=== PATIENT | female | born 1985 | race Caucasian/White ===

== ENCOUNTER 2020-10-20 05:27 | Inpatient (IN) | payer BC ==
[2020-10-20] MEDS ORDERED: Sodium Chloride 0.9% 2.5 ML Syringe FLUSH PRN (05:53)
[2020-10-20] MEDS ORDERED: Carboprost Tromethamine 250 MCG/1 ML Amp IM PRN (05:53)
[2020-10-20] MEDS ORDERED: Methylergonovine 0.2 MG/1 ML Amp IM PRN ×2 (05:53→09:16)
[2020-10-20] MEDS ORDERED: Sodium Chloride 0.9% 10 ML Syringe FLUSH PRN (05:53)
[2020-10-20] MEDS ORDERED: Water For Irrigation,Sterile 1,000 ML Container IRR PRN (05:53)
[2020-10-20] MEDS ORDERED: Tranexamic Acid 1,000 MG in Sodium Chloride 0.9% 100 ML IV PRN ×2 (05:53→09:16)
[2020-10-20] MEDS ORDERED: ceFAZolin 2 GM in Premix Bag 1 BAG IV ONE (05:53)
[2020-10-20] MEDS ORDERED: Misoprostol 200 MCG Tab PO PRN (05:53)
[2020-10-20] MEDS ORDERED: Lidocaine 1% 50 ML MDV INJECT PRN (05:53)
[2020-10-20] MEDS ORDERED: Ondansetron 4 MG/2 ML SDV IVPUSH PRN ×2 (05:53→09:16)
[2020-10-20] MEDS ORDERED: Citric Acid/Sodium Citrate Solution 30 ML Cup PO ONE (05:53)
[2020-10-20] MEDS ORDERED: Sodium Chloride 0.9% 10 ML SDV IV PRN (05:53)
[2020-10-20] MEDS ORDERED: Lactated Ringers 1,000 ML IV SCH ×2 (06:00→09:30)
[2020-10-20] MEDS ORDERED: Oxytocin/0.9 % Sodium Chloride 30 UNIT/500 ML BAG IV SCH ×2 (06:00)
[2020-10-20] MEDS: Lactated Ringers 1,000 ML IV SCH ×2 (06:29→07:10)
[2020-10-20] MEDS ORDERED: Ketorolac 30 MG/ML SDV ONE (06:45)
[2020-10-20] MEDS ORDERED: Phenylephrine 1% 10 MG/ML SDV ONE (06:45)
[2020-10-20] MEDS ORDERED: Oxytocin 10 Units/1 ML SDV ONE (06:45)
[2020-10-20] MEDS ORDERED: Ondansetron 4 MG/2 ML SDV ONE ×2 (06:45→08:36)
[2020-10-20] MEDS ORDERED: ceFAZolin 1 GM Vial ONE (06:48)
[2020-10-20] MEDS ORDERED: Sodium Chloride 0.9% 20 ML ONE (06:48)
[2020-10-20] MEDS ORDERED: Morphine PF 10 MG/10 ML SDV ONE (06:53)
[2020-10-20] MEDS ORDERED: Nalbuphine 10 MG/1 ML Vial IVPUSH PRN (06:57)
--- NOTE | 2020-10-20 07:24 | PCM.PREANE ---
Preanesthetic Assessment - Anesthesia/Transfusion/Family Hx Anesthesia History: Prior Anesthesia Without Reaction Family History of Anesthesia Reaction: No Transfusion History: No Prior Transfusion(s) Intubation History: Unknown - Physical Assessment NPO Status Date: 10/20/20 NPO Status Time: 00:05 Height: 1.65 m Weight: 102.965 kg ASA Class: 2 - Lab Values: Laboratory Last Values WBC 9.32 K/uL (4.0-11.0) 10/19/20 08:20 RBC 4.74 M/uL (4.30-5.90) 10/19/20 08:20 Hgb 14.1 g/dL (12.0-16.0) 10/19/20 08:20 Hct 41.6 % (36.0-46.0) 10/19/20 08:20 MCV 87.8 fL (80.0-98.0) 10/19/20 08:20 MCH 29.7 pg (27.0-32.0) 10/19/20 08:20 MCHC 33.9 g/dL (31.0-37.0) 10/19/20 08:20 RDW Std Deviation 46.5 fl (28.0-62.0) 10/19/20 08:20 RDW Coeff of Eva 15 % (11.0-15.0) 10/19/20 08:20 Plt Count 194 K/uL (150-400) 10/19/20 08:20 MPV 10.40 fL (7.40-12.00) 10/19/20 08:20 Nucleated RBC % 0.0 /100WBC 10/19/20 08:20 Nucleated RBCs # 0 K/uL 10/19/20 08:20 Blood Type A POSITIVE 10/19/20 08:20 Antibody Screen NEGATIVE 10/19/20 08:20 - Allergies Allergies/Adverse Reactions: Allergies Allergy/AdvReac Type Severity Reaction Status Date / Time No Known Allergies Allergy Verified 10/17/20 08:59 - Acknowledgements Anesthesia Type Planned: Spinal Pt an Appropriate Candidate for the Planned Anesthesia: Yes Alternatives and Risks of Anesthesia Discussed w Pt/Guardian: Yes Pt/Guardian Understands and Agrees with Anesthesia Plan: Yes PreAnesthesia Questionnaire HEENT History: Reports: Other (See Below) Other HEENT History: wears glasses/contacts Cardiovascular History: Reports: None Respiratory History: Reports: None Gastrointestinal History: Reports: GERD Other Gastrointestinal History: heartburn with Genitourinary History: Reports: None KNOCKER OFF History: Reports: , Other (See Below) Other OB/BYN History: LEEP, Colpo X3 Neurological History: Reports: None Psychiatric History: Reports: Anxiety Endocrine/Metabolic History: Reports: None Hematologic History: Reports: None Immunologic History: Reports: None Oncologic (Cancer) History: Reports: None Dermatologic History: Reports: None - Infectious Disease History Infectious Disease History: Reports: Human Papilloma Virus (HPV) - Past Surgical History Head Surgeries/Procedures: Reports: None HEENT Surgical History: Reports: Oral Surgery Cardiovascular Surgical History: Reports: None Respiratory Surgical History: Reports: None GI Surgical History: Reports: None Female Surgical History: Reports: Section, LEEP Endocrine Surgical History: Reports: None Neurological Surgical History: Reports: None Musculoskeletal Surgical History: Reports: None Oncologic Surgical History: Reports: None Dermatological Surgical History: Reports: None - SUBSTANCE USE Tobacco Use Status *Q: Never Tobacco User Second Hand Smoke Exposure: No Recreational Drug Use History: No - HOME MEDS Home Medications: Home Meds Vits #93/Iron Fum/FA [ Formula Tablet] 1 tab PO DAILY 09/22/18 [History] Escitalopram Oxalate 10 mg PO BEDTIME 10/17/20 [History] Famotidine [Pepcid AC] 1 tab PO DAILY 10/17/20 [History] - CURRENT (IN HOUSE) MEDS Current Meds: Current Medications Carboprost Tromethamine (Carboprost Tromethamine 250 Mcg/1 Ml Amp) 250 mcg IM ASDIRECTED PRN PRN Reason: Post Hemorrhage Lactated Ringer's (Ringers, Lactated) 1,000 mls @ 150 mls/hr IV ASDIRECTED KELLY Oxytocin/Sodium Chloride (Oxytocin 30 Unit/500 Ml-Ns) 30 unit in 500 mls @ 999 mls/hr IV TITRATE KELLY Tranexamic Acid 1,000 mg/ (Sodium Chloride) 110 mls @ 660 mls/hr IV ONETIME PRN PRN Reason: Bleeding Lactated Ringer's (Ringers, Lactated) 1,000 mls @ 500 mls/hr IV BOLUS KELLY Last Admin: 10/20/20 06:29 Dose: 500 mls/hr Documented by: Oxytocin/Sodium Chloride (Oxytocin 30 Unit/500 Ml-Ns) 30 unit in 500 mls @ 250 mls/hr IV TITRATE KELLY Lidocaine HCl (Lidocaine 1% 50 Ml Mdv) 50 ml INJECT ONETIME PRN PRN Reason: Laceration repair Methylergonovine Maleate (Methylergonovine 0.2 Mg/1 Ml Amp) 0.2 mg IM ASDIRECTED PRN PRN Reason: Post Hemorrhage Misoprostol (Misoprostol 200 Mcg Tab) 200 mcg PO ONETIME PRN PRN Reason: Post Hemorrhage Nalbuphine HCl (Nalbuphine 10 Mg/1 Ml Vial) 5 mg IVPUSH Q3H PRN PRN Reason: Pruritis Stop: 10/21/20 06:57 Ondansetron HCl (Ondansetron 4 Mg/2 Ml Sdv) 4 mg IVPUSH Q4H PRN PRN Reason: Nausea/Vomiting Sodium Chloride (Sodium Chloride 0.9% 10 Ml Syringe) 10 ml FLUSH ASDIRECTED PRN PRN Reason: Keep Vein Open Sodium Chloride (Sodium Chloride 0.9% 2.5 Ml Syringe) 2.5 ml FLUSH ASDIRECTED PRN PRN Reason: Keep Vein Open Sodium Chloride (Sodium Chloride 0.9% 10 Ml Sdv) 10 ml IV ASDIRECTED PRN PRN Reason: IV Use Sterile Water (Water For Irrigation,Sterile 1,000 Ml Container) 1,000 ml IRR ASDIRECTED PRN PRN Reason: delivery Discontinued Medications Cefazolin Sodium (Cefazolin 1 Gm Vial) Confirm Administered Dose 2 gm .ROUTE .STK-MED ONE Stop: 10/20/20 06:49 Citric Acid/Sodium Citrate (Citric Acid/Sodium Citrate Solution 30 Ml Cup) 30 ml PO ONETIME ONE Stop: 10/20/20 05:54 Cefazolin Sodium/Dextrose 2 gm (/ Premix) 50 mls @ 100 mls/hr IV ONETIME ONE Stop: 10/20/20 06:22 Sodium Chloride (Normal Saline) Confirm Administered Dose 20 mls @ as directed .ROUTE .STK-MED ONE Stop: 10/20/20 06:49 Ketorolac Tromethamine (Ketorolac 30 Mg/Ml Sdv) Confirm Administered Dose 30 mg .ROUTE .STK-MED ONE Stop: 10/20/20 06:46 Morphine Sulfate (Morphine Pf 10 Mg/10 Ml Sdv) Confirm Administered Dose 10 mg .ROUTE .STK-MED ONE Stop: 10/20/20 06:54 Ondansetron HCl (Ondansetron 4 Mg/2 Ml Sdv) Confirm Administered Dose 4 mg .ROUTE .STK-MED ONE Stop: 10/20/20 06:46 Oxytocin (Oxytocin 10 Units/1 Ml Sdv) Confirm Administered Dose 20 unit .ROUTE .STK-MED ONE Stop: 10/20/20 06:46 Phenylephrine HCl (Phenylephrine 1% 10 Mg/Ml Sdv) Confirm Administered Dose 10 mg .ROUTE .STK-MED ONE Stop: 10/20/20 06:46
[2020-10-20] MEDS ORDERED: Propofol 200 MG/20 ML SDV ONE (08:17)
[2020-10-20] MEDS ORDERED: Lanolin 100% Cream 7 GM Tube TOP PRN (09:16)
[2020-10-20] MEDS ORDERED: diphenhydrAMINE 50 MG/ML SDV IVPUSH PRN (09:16)
[2020-10-20] MEDS ORDERED: Oxytocin 10 Units/1 ML SDV IM PRN (09:16)
[2020-10-20] MEDS ORDERED: Misoprostol 200 MCG Tab RECTAL PRN (09:16)
[2020-10-20] MEDS ORDERED: Acetaminophen/oxyCODONE 325-5 MG Tab PO PRN ×2 (09:16)
[2020-10-20] MEDS ORDERED: Bisacodyl 10 MG Supp RECTAL PRN (09:16)
--- NOTE | 2020-10-20 09:26 | PCM.OPNOTE ---
- General Post-Op/Procedure Note Date of Surgery/Procedure: 10/20/20 Operative Procedure(s): Repeat LTCS Findings: Viable female APGARs 8, 9 weight 4350 gm. Delivery intact placenta with 3V cord. Pre Op Diagnosis: 39 week IUP. Previous csection, desires repeat Post-Op Diagnosis: Same Anesthesia Technique: Spinal Primary Surgeon: Carolyn Hernandes Fluid Replacement, Intraop: 1,000 EBL in mLs: 600 Complications: none known Condition: Stable Free Text/Narrative:: Dictation [id number]
--- NOTE | 2020-10-20 09:46 | PCM.POSTAN ---
POST ANESTHESIA ASSESSMENT - MENTAL STATUS Mental Status: Alert - RESPIRATORY Respiratory Status: Respiratory Rate WNL - CARDIOVASCULAR CV Status: Pulse Rate WNL - GASTROINTESTINAL GI Status: No Symptoms - POST OP HYDRATION Hydration Status: Adequate & Stable
--- NOTE | 2020-10-20 09:48 | PCM48HPAN ---
Post Anesthesia Note - EVALUATION WITHIN 48HRS OF ANESTHETIC Vital Signs in Normal Range: Yes Patient Participated in Evaluation: Yes Respiratory Function Stable: Yes Airway Patent: Yes Cardiovascular Function Stable: Yes Hydration Status Stable: Yes Pain Control Satisfactory: Yes Nausea and Vomiting Control Satisfactory: Yes Mental Status Recovered: Yes
[2020-10-20] MEDS: Simethicone 80 MG Tab.Chew PO SCH ×2 (13:43→18:53)
[2020-10-20] MEDS: Ketorolac 30 MG/ML SDV IVPUSH SCH ×3 (13:43→21:18)
--- NOTE | 2020-10-20 13:57 | OR ---
SURGEON: Carolyn Hernandes M.D. DATE OF PROCEDURE: 10/20/2020 PREOPERATIVE DIAGNOSES: 1. A 39-week intrauterine . 2. Previous section, desires repeat. POSTOPERATIVE DIAGNOSES: 1. A 39-week intrauterine . 2. Previous section, desires repeat. PROCEDURE: Repeat low transverse section. ANESTHESIA: Spinal. ESTIMATED BLOOD LOSS: 600 mL. FLUIDS: 1000 mL of crystalloid in OR. COMPLICATIONS: None. FINDINGS: Viable female. scores 8 at one minute, 9 at five minutes. Weight of 4350 g. Delivery of an intact placenta with 3-vessel cord. DISPOSITION: to nursery. Mom in PACU, stable. PROCEDURE DETAILS: Kimberly is a 35-year-old G2, P1 at 39 weeks gestational age who presents today for scheduled repeat delivery. Risks of procedure have been discussed. Proper consent obtained. The patient was taken to the operating room, where she underwent spinal anesthetic, and was then placed in dorsal supine position with leftward tilt. SCDs to lower extremities. Sheikh to gravity. She was prepped and draped in the usual sterile fashion. Received Ancef prophylactically. Time-out was performed. After being prepped and draped in the usual sterile fashion, anesthesia was tested and found to be adequate. A Pfannenstiel scar was now excised. Subcutaneous tissue was incised down to the level of rectus fascia, which was incised in midline, lateralized on either side sharply and bluntly. Superior aspect of fascia was tented upwards, dissected sharply and bluntly away from underlying muscle. In a similar aspect, performed with the inferior aspect of the fascia. Rectus muscles were now in midline. Peritoneum was entered. Rectus muscles and peritoneum were now lateralized bluntly. A self- retaining retractor was now gently placed. Uterine position and position were now palpated. The uterovesical reflection was visualized. Bladder flap was created sharply and bluntly. Bladder was mobilized away from lower uterine segment. There was a peritoneal window noted on the right side of the lower uterine segment along this region, was able to bluntly perform hysterotomy. Amniotomy was performed, clear fluid was returned. The head was flexed and the head was delivered with fundal pressure being applied, followed by shoulders, and remainder of body without difficulty. The 's oropharynx and nares were bulb suctioned. After a delay, cord was clamped x2. Cord arterial, cord venous, and cord blood sampling obtained. The was handed off to attending nursery staff. Cord arterial, cord venous, and cord blood sampling were obtained. The placenta was now delivered. Uterine cavity was cleared of all clot and debris. Hysterotomy repaired using 0 Vicryl in continuous running locked fashion. There was uterine vessel bleeding along the left aspect. This was replicated with 2 [id number] sutures. Hemostasis thereafter evident. The incision was now reimbricated with 0 Vicryl. The posterior aspect of the uterus was inspected. No defects or hematomas found be forming. Region was well irrigated, suction dried. Tubes and ovaries appeared normal. Uterus was returned to the abdominal cavity. Colonic gutters were cleared of all clot and debris, well irrigated, and suction dried. Any areas of serosal oozing were now cauterized. Hemostasis appeared evident. Self-retaining retractor was gently removed. Bladder blade was placed, and once again inspected the hysterotomy, which was found to be hemostatic. Rectus muscle and peritoneum were reapproximated now using 0 Vicryl with inverted mattress suture technique. Anterior aspect of the muscle, posterior aspect of the fascia closely inspected. Any areas of oozing were cauterized. The fascial edges were reapproximated using 0 Vicryl in continuous running fashion beginning laterally on either side meeting in the midline. Subcutaneous tissue was well irrigated, suction dried. Any areas of oozing were cauterized. Deep subcutaneous tissue was reapproximated using 3-0 plain gut in continuous running fashion. Skin edges reapproximated using 3-0 Vicryl on a Jose needle in subcuticular fashion and then a ZAIRE dressing was applied according to manufacture's protocol. The patient tolerated the procedure well overall. Sponge, instrument, and needle counts correct x2. She will go to PACU in stable condition, infant to nursery. DOMO / NADIA /[id number]
[2020-10-20] MEDS: Docusate Sodium 100 MG Cap PO SCH (21:18)
[2020-10-21] MEDS: Simethicone 80 MG Tab.Chew PO SCH ×4 (00:54→19:03)
[2020-10-21] MEDS: Ketorolac 30 MG/ML SDV IVPUSH SCH ×2 (03:43→09:43)
[2020-10-21] MEDS: Docusate Sodium 100 MG Cap PO SCH (09:43)
--- NOTE | 2020-10-21 11:29 | PCM.PNPP ---
- General Info Date of Service: 10/21/20 Functional Status: Reports: Pain Controlled, Tolerating Diet, Ambulating, Urinating - Review of Systems General: Denies: Fever, Weakness, Fatigue Pulmonary: Denies: Shortness of Breath Cardiovascular: Denies: Chest Pain, Palpitations, Lightheadedness Gastrointestinal: Denies: Abdominal Pain, Nausea, Vomiting Genitourinary: Reports: No Symptoms Musculoskeletal: Reports: No Symptoms Skin: Reports: No Symptoms Neurological: Reports: No Symptoms Psychiatric: Reports: No Symptoms - General Info Date of Service: 10/21/20 - Patient Data Vital Signs - Most Recent: Last Vital Signs Temp 36.4 C 10/21/20 05:02 Pulse 75 10/21/20 00:19 Resp 15 10/21/20 06:20 BP 111/78 10/21/20 05:02 Pulse Ox 96 10/21/20 06:20 Weight - Most Recent: 102.965 kg I&O - Last 24 Hours: Intake & Output 10/20/20 10/21/20 10/21/20 22:59 06:59 14:59 Intake Total 751 Output Total 1550 Balance -799 Lab Results - Last 24 Hours: Laboratory Results - last 24 hr 10/19/20 10/21/20 Range/Units 08:20 06:16 Hgb 11.2 L (12.0-16.0) g/dL Hct 33.1 L (36.0-46.0) % RPR Non-Reac (Non-Reac) Med Orders - Current: Current Medications Bisacodyl (Bisacodyl 10 Mg Supp) 10 mg RECTAL ONETIME PRN PRN Reason: Constipation Carboprost Tromethamine (Carboprost Tromethamine 250 Mcg/1 Ml Amp) 250 mcg IM ASDIRECTED PRN PRN Reason: Post Hemorrhage Diphenhydramine HCl (Diphenhydramine 50 Mg/Ml Sdv) 25 mg IVPUSH Q6H PRN PRN Reason: Itching or Nausea Last Admin: 10/20/20 18:53 Dose: 25 mg Documented by: Docusate Sodium (Docusate Sodium 100 Mg Cap) 100 mg PO BID KELLY Last Admin: 10/21/20 09:43 Dose: 100 mg Documented by: Emollient Ointment (Lanolin 100% Cream 7 Gm Tube) 0 gm TOP ASDIRECTED PRN PRN Reason: Sore Nipples Lactated Ringer's (Ringers, Lactated) 1,000 mls @ 150 mls/hr IV ASDIRECTED [facility] Oxytocin/Sodium Chloride (Oxytocin 30 Unit/500 Ml-Ns) 30 unit in 500 mls @ 999 mls/hr IV TITRATE [facility] Tranexamic Acid 1,000 mg/ (Sodium Chloride) 110 mls @ 660 mls/hr IV ONETIME PRN PRN Reason: Bleeding Lactated Ringer's (Ringers, Lactated) 1,000 mls @ 500 mls/hr IV BOLUS [facility] Last Admin: 10/20/20 07:10 Dose: 500 mls/hr Documented by: Oxytocin/Sodium Chloride (Oxytocin 30 Unit/500 Ml-Ns) 30 unit in 500 mls @ 250 mls/hr IV TITRATE [facility] Lactated Ringer's (Ringers, Lactated) 1,000 mls @ 125 mls/hr IV ASDIRECTED [facility] Last Admin: 10/20/20 10:02 Dose: 125 mls/hr Documented by: Tranexamic Acid 1,000 mg/ (Sodium Chloride) 110 mls @ 660 mls/hr IV ONETIME PRN PRN Reason: Bleeding Ibuprofen (Ibuprofen 800 Mg Tab) 800 mg PO Q8H PRN PRN Reason: mild pain or fever Lidocaine HCl (Lidocaine 1% 50 Ml Mdv) 50 ml INJECT ONETIME PRN PRN Reason: Laceration repair Methylergonovine Maleate (Methylergonovine 0.2 Mg/1 Ml Amp) 0.2 mg IM ASDIRECTED PRN PRN Reason: Post Hemorrhage Methylergonovine Maleate (Methylergonovine 0.2 Mg/1 Ml Amp) 0.2 mg IM ONETIME PRN PRN Reason: Excessive Vaginal Bleeding Misoprostol (Misoprostol 200 Mcg Tab) 200 mcg PO ONETIME PRN PRN Reason: Post Hemorrhage Misoprostol (Misoprostol 200 Mcg Tab) 1,000 mcg RECTAL ONETIME PRN PRN Reason: excessive bleeding Ondansetron HCl (Ondansetron 4 Mg/2 Ml Sdv) 4 mg IVPUSH Q4H PRN PRN Reason: Nausea/Vomiting Ondansetron HCl (Ondansetron 4 Mg/2 Ml Sdv) 4 mg IVPUSH Q4H PRN PRN Reason: Nausea/Vomiting Oxycodone/Acetaminophen (Acetaminophen/Oxycodone 325-5 Mg Tab) 1 tab PO Q4H PRN PRN Reason: Pain (severe 7-10) Oxycodone/Acetaminophen (Acetaminophen/Oxycodone 325-5 Mg Tab) 2 tab PO Q4H PRN PRN Reason: Pain (severe 7-10) Oxytocin (Oxytocin 10 Units/1 Ml Sdv) 10 unit IM ASDIRECTED PRN PRN Reason: Excessive Vaginal Bleeding Simethicone (Simethicone 80 Mg Tab.Chew) 160 mg PO QID KELLY Last Admin: 10/21/20 07:09 Dose: Not Given Documented by: Sodium Chloride (Sodium Chloride 0.9% 10 Ml Syringe) 10 ml FLUSH ASDIRECTED PRN PRN Reason: Keep Vein Open Sodium Chloride (Sodium Chloride 0.9% 2.5 Ml Syringe) 2.5 ml FLUSH ASDIRECTED PRN PRN Reason: Keep Vein Open Sodium Chloride (Sodium Chloride 0.9% 10 Ml Sdv) 10 ml IV ASDIRECTED PRN PRN Reason: IV Use Sterile Water (Water For Irrigation,Sterile 1,000 Ml Container) 1,000 ml IRR ASDIRECTED PRN PRN Reason: delivery Discontinued Medications Cefazolin Sodium (Cefazolin 1 Gm Vial) Confirm Administered Dose 2 gm .ROUTE .STK-MED ONE Stop: 10/20/20 06:49 Citric Acid/Sodium Citrate (Citric Acid/Sodium Citrate Solution 30 Ml Cup) 30 m l PO ONETIME ONE Stop: 10/20/20 05:54 Last Admin: 10/20/20 13:33 Dose: Not Given Documented by: Cefazolin Sodium/Dextrose 2 gm (/ Premix) 50 mls @ 100 mls/hr IV ONETIME ONE Stop: 10/20/20 06:22 Last Admin: 10/20/20 13:33 Dose: Not Given Documented by: Sodium Chloride (Normal Saline) Confirm Administered Dose 20 mls @ as directed .ROUTE .STK-MED ONE Stop: 10/20/20 06:49 Ketorolac Tromethamine (Ketorolac 30 Mg/Ml Sdv) Confirm Administered Dose 30 mg .ROUTE .STK-MED ONE Stop: 10/20/20 06:46 Ketorolac Tromethamine (Ketorolac 30 Mg/Ml Sdv) 30 mg IVPUSH Q6H [facility] Stop: 10/21/20 09:31 Last Admin: 10/21/20 09:43 Dose: 30 mg Documented by: Morphine Sulfate (Morphine Pf 10 Mg/10 Ml Sdv) Confirm Administered Dose 10 mg .ROUTE .STK-MED ONE Stop: 10/20/20 06:54 Nalbuphine HCl (Nalbuphine 10 Mg/1 Ml Vial) 5 mg IVPUSH Q3H PRN PRN Reason: Pruritis Stop: 10/21/20 06:57 Last Admin: 10/20/20 11:18 Dose: 5 mg Documented by: Ondansetron HCl (Ondansetron 4 Mg/2 Ml Sdv) Confirm Administered Dose 4 mg .ROUTE .STK-MED ONE Stop: 10/20/20 06:46 Ondansetron HCl (Ondansetron 4 Mg/2 Ml Sdv) Confirm Administered Dose 4 mg .ROUTE .STK-MED ONE Stop: 10/20/20 08:37 Oxytocin (Oxytocin 10 Units/1 Ml Sdv) Confirm Administered Dose 20 unit .ROUTE .STK-MED ONE Stop: 10/20/20 06:46 Phenylephrine HCl (Phenylephrine 1% 10 Mg/Ml Sdv) Confirm Administered Dose 10 mg .ROUTE .STK-MED ONE Stop: 10/20/20 06:46 Propofol (Propofol 200 Mg/20 Ml Sdv) Confirm Administered Dose 200 mg .ROUTE .STK-MED ONE Stop: 10/20/20 08:18 - Infant Interaction Support Person: - Recovery Exam Fundal Tone: Firm Fundal Level: At Umbilicus Fundal Placement: Midline Lochia Amount: Scant Lochia Color: Rubra/Red Perineum Description: Intact, Minimal Bruising/Swelling Episiotomy/Laceration: Approximated Bladder Status: Indwelling Catheter in Place Urinary Elimination: Indwelling Catheter - Exam General: Alert, Oriented Lungs: Normal Respiratory Effort Cardiovascular: Regular Rate, Regular Rhythm GI/Abdominal Exam: Normal Bowel Sounds, Soft Extremities: Pedal Edema (trace). No: Miriam's Sign Skin: Warm, Dry, Intact Wound/Incisions: Dressing Dry and Intact Neurological: No New Focal Deficit Psy/Mental Status: Alert, Normal Affect, Normal Mood - Problem List & Annotations (1) delivery delivered SNOMED Code(s): 020905668 Code(s): O82 - ENCOUNTER FOR DELIVERY WITHOUT INDICATION Status: Acute Current Visit: No - Problem List Review Problem List Initiated/Reviewed/Updated: Yes - My Orders Last 24 Hours: My Active Orders 10/20/20 Lunch Regular Diet [DIET] 10/20/20 12:00 Simethicone 160 mg PO QID 10/20/20 21:00 Docusate Sodium [Colace] 100 mg PO BID 10/21/20 15:30 Ibuprofen [Motrin] 800 mg PO Q8H PRN - Assessment Assessment:: POD 1 status post repeat LTCS - Plan Plan:: Doing well overall--continue cares. VS and labs reassuring. Ambulate today and work with .
[2020-10-21] MEDS: Ibuprofen 800 MG Tab PO PRN ×2 (14:00→23:48)
[2020-10-21] MEDS: Acetaminophen 500 MG Tab PO PRN (19:01)
[2020-10-21] MEDS ORDERED: Acetaminophen 500 MG Tab PO PRN (19:30)
[2020-10-22] MEDS: Docusate Sodium 100 MG Cap PO SCH ×2 (02:22→09:59)
[2020-10-22] MEDS: Simethicone 80 MG Tab.Chew PO SCH ×3 (02:23→12:05)
[2020-10-22] MEDS: Acetaminophen 500 MG Tab PO PRN (04:42)
--- NOTE | 2020-10-22 10:17 | PCM.PNPP ---
- General Info Date of Service: 10/22/20 Functional Status: Reports: Pain Controlled, Tolerating Diet, Ambulating, Urinating - Review of Systems General: Denies: Fever, Weakness Pulmonary: Denies: Shortness of Breath Cardiovascular: Denies: Chest Pain, Palpitations, Lightheadedness Gastrointestinal: Denies: Abdominal Pain, Nausea, Vomiting Genitourinary: Denies: Flank Pain Musculoskeletal: Reports: No Symptoms Skin: Reports: No Symptoms Neurological: Reports: No Symptoms Psychiatric: Reports: No Symptoms - General Info Date of Service: 10/22/20 - Patient Data Vital Signs - Most Recent: Last Vital Signs Temp 36.6 C 10/22/20 09:20 Pulse 78 10/22/20 09:20 Resp 17 10/22/20 09:20 BP 116/67 10/22/20 09:20 Pulse Ox 96 10/22/20 09:20 Weight - Most Recent: 102.965 kg Med Orders - Current: Current Medications Acetaminophen (Acetaminophen 500 Mg Tab) 1,000 mg PO Q4H PRN PRN Reason: Pain (moderate 4-6) Last Admin: 10/22/20 04:42 Dose: 1,000 mg Documented by: Acetaminophen (Acetaminophen 500 Mg Tab) 500 mg PO Q4H PRN PRN Reason: Pain (mild 1-3) Bisacodyl (Bisacodyl 10 Mg Supp) 10 mg RECTAL ONETIME PRN PRN Reason: Constipation Carboprost Tromethamine (Carboprost Tromethamine 250 Mcg/1 Ml Amp) 250 mcg IM ASDIRECTED PRN PRN Reason: Post Hemorrhage Diphenhydramine HCl (Diphenhydramine 50 Mg/Ml Sdv) 25 mg IVPUSH Q6H PRN PRN Reason: Itching or Nausea Last Admin: 10/20/20 18:53 Dose: 25 mg Documented by: Docusate Sodium (Docusate Sodium 100 Mg Cap) 100 mg PO BID KELLY Last Admin: 10/22/20 09:59 Dose: Not Given Documented by: Emollient Ointment (Lanolin 100% Cream 7 Gm Tube) 0 gm TOP ASDIRECTED PRN PRN Reason: Sore Nipples Lactated Ringer's (Ringers, Lactated) 1,000 mls @ 150 mls/hr IV ASDIRECTED KELLY Oxytocin/Sodium Chloride (Oxytocin 30 Unit/500 Ml-Ns) 30 unit in 500 mls @ 999 mls/hr IV TITRATE [facility] Tranexamic Acid 1,000 mg/ (Sodium Chloride) 110 mls @ 660 mls/hr IV ONETIME PRN PRN Reason: Bleeding Lactated Ringer's (Ringers, Lactated) 1,000 mls @ 500 mls/hr IV BOLUS [facility] Last Admin: 10/20/20 07:10 Dose: 500 mls/hr Documented by: Oxytocin/Sodium Chloride (Oxytocin 30 Unit/500 Ml-Ns) 30 unit in 500 mls @ 250 mls/hr IV TITRATE [facility] Lactated Ringer's (Ringers, Lactated) 1,000 mls @ 125 mls/hr IV ASDIRECTED [facility] Last Admin: 10/20/20 10:02 Dose: 125 mls/hr Documented by: Tranexamic Acid 1,000 mg/ (Sodium Chloride) 110 mls @ 660 mls/hr IV ONETIME PRN PRN Reason: Bleeding Ibuprofen (Ibuprofen 800 Mg Tab) 800 mg PO Q8H PRN PRN Reason: mild pain or fever Last Admin: 10/21/20 23:48 Dose: 800 mg Documented by: Lidocaine HCl (Lidocaine 1% 50 Ml Mdv) 50 ml INJECT ONETIME PRN PRN Reason: Laceration repair Methylergonovine Maleate (Methylergonovine 0.2 Mg/1 Ml Amp) 0.2 mg IM ASDIRECTED PRN PRN Reason: Post Hemorrhage Methylergonovine Maleate (Methylergonovine 0.2 Mg/1 Ml Amp) 0.2 mg IM ONETIME PRN PRN Reason: Excessive Vaginal Bleeding Misoprostol (Misoprostol 200 Mcg Tab) 200 mcg PO ONETIME PRN PRN Reason: Post Hemorrhage Misoprostol (Misoprostol 200 Mcg Tab) 1,000 mcg RECTAL ONETIME PRN PRN Reason: excessive bleeding Ondansetron HCl (Ondansetron 4 Mg/2 Ml Sdv) 4 mg IVPUSH Q4H PRN PRN Reason: Nausea/Vomiting Ondansetron HCl (Ondansetron 4 Mg/2 Ml Sdv) 4 mg IVPUSH Q4H PRN PRN Reason: Nausea/Vomiting Oxycodone/Acetaminophen (Acetaminophen/Oxycodone 325-5 Mg Tab) 1 tab PO Q4H PRN PRN Reason: Pain (severe 7-10) Oxycodone/Acetaminophen (Acetaminophen/Oxycodone 325-5 Mg Tab) 2 tab PO Q4H PRN PRN Reason: Pain (severe 7-10) Oxytocin (Oxytocin 10 Units/1 Ml Sdv) 10 unit IM ASDIRECTED PRN PRN Reason: Excessive Vaginal Bleeding Simethicone (Simethicone 80 Mg Tab.Chew) 160 mg PO QID KELLY Last Admin: 10/22/20 09:59 Dose: Not Given Documented by: Sodium Chloride (Sodium Chloride 0.9% 10 Ml Syringe) 10 ml FLUSH ASDIRECTED PRN PRN Reason: Keep Vein Open Sodium Chloride (Sodium Chloride 0.9% 2.5 Ml Syringe) 2.5 ml FLUSH ASDIRECTED PRN PRN Reason: Keep Vein Open Sodium Chloride (Sodium Chloride 0.9% 10 Ml Sdv) 10 ml IV ASDIRECTED PRN PRN Reason: IV Use Sterile Water (Water For Irrigation,Sterile 1,000 Ml Container) 1,000 ml IRR ASDIRECTED PRN PRN Reason: delivery Discontinued Medications Cefazolin Sodium (Cefazolin 1 Gm Vial) Confirm Administered Dose 2 gm .ROUTE .STK-MED ONE Stop: 10/20/20 06:49 Citric Acid/Sodium Citrate (Citric Acid/Sodium Citrate Solution 30 Ml Cup) 30 ml PO ONETIME ONE Stop: 10/20/20 05:54 Last Admin: 10/20/20 13:33 Dose: Not Given Documented by: Cefazolin Sodium/Dextrose 2 gm (/ Premix) 50 mls @ 100 mls/hr IV ONETIME ONE Stop: 10/20/20 06:22 Last Admin: 10/20/20 13:33 Dose: Not Given Documented by: Sodium Chloride (Normal Saline) Confirm Administered Dose 20 mls @ as directed .ROUTE .STK-MED ONE Stop: 10/20/20 06:49 Ketorolac Tromethamine (Ketorolac 30 Mg/Ml Sdv) Confirm Administered Dose 30 mg .ROUTE .STK-MED ONE Stop: 10/20/20 06:46 Ketorolac Tromethamine (Ketorolac 30 Mg/Ml Sdv) 30 mg IVPUSH Q6H KELLY Stop: 10/21/20 09:31 Last Admin: 10/21/20 09:43 Dose: 30 mg Documented by: Morphine Sulfate (Morphine Pf 10 Mg/10 Ml Sdv) Confirm Administered Dose 10 mg .ROUTE .STK-MED ONE Stop: 10/20/20 06:54 Nalbuphine HCl (Nalbuphine 10 Mg/1 Ml Vial) 5 mg IVPUSH Q3H PRN PRN Reason: Pruritis Stop: 10/21/20 06:57 Last Admin: 10/20/20 11:18 Dose: 5 mg Documented by: Ondansetron HCl (Ondansetron 4 Mg/2 Ml Sdv) Confirm Administered Dose 4 mg .ROUTE .STK-MED ONE Stop: 10/20/20 06:46 Ondansetron HCl (Ondansetron 4 Mg/2 Ml Sdv) Confirm Administered Dose 4 mg .ROUTE .STK-MED ONE Stop: 10/20/20 08:37 Oxytocin (Oxytocin 10 Units/1 Ml Sdv) Confirm Administered Dose 20 unit .ROUTE .STK-MED ONE Stop: 10/20/20 06:46 Phenylephrine HCl (Phenylephrine 1% 10 Mg/Ml Sdv) Confirm Administered Dose 10 mg .ROUTE .STK-MED ONE Stop: 10/20/20 06:46 Propofol (Propofol 200 Mg/20 Ml Sdv) Confirm Administered Dose 200 mg .ROUTE .STK-MED ONE Stop: 10/20/20 08:18 - Infant Interaction Support Person: - Recovery Exam Fundal Tone: Firm Fundal Level: 1 Fingerbreadths Below Umbilicus Fundal Placement: Midline Lochia Amount: Scant Lochia Color: Rubra/Red Perineum Description: Intact, Minimal Bruising/Swelling Episiotomy/Laceration: None Bladder Status: Voiding Urinary Elimination: Voided - Exam General: Alert, Oriented Lungs: Normal Respiratory Effort Cardiovascular: Regular Rate, Regular Rhythm GI/Abdominal Exam: Normal Bowel Sounds, Soft Extremities: Pedal Edema (trace). No: Miriam's Sign Skin: Warm, Dry, Intact Wound/Incisions: Dressing Dry and Intact Neurological: No New Focal Deficit Psy/Mental Status: Alert (trace), Normal Affect, Normal Mood - Problem List & Annotations (1) delivery delivered SNOMED Code(s): 438853126 Code(s): O82 - ENCOUNTER FOR DELIVERY WITHOUT INDICATION Status: Acute Current Visit: No - Problem List Review Problem List Initiated/Reviewed/Updated: Yes - My Orders Last 24 Hours: My Active Orders 10/21/20 11:37 Acetaminophen [Tylenol Extra Strength] 1,000 mg PO Q4H PRN 10/21/20 15:30 Ibuprofen [Motrin] 800 mg PO Q8H PRN 10/21/20 19:30 Acetaminophen [Tylenol Extra Strength] 500 mg PO Q4H PRN 10/22/20 10:11 Ready for Discharge [RC] PER UNIT ROUTINE - Assessment Assessment:: POD 1 status post repeat LTCS - Plan Plan:: Doing well overall--continue cares. VS and labs reassuring. Ambulate today and work with .
[2020-10-22] MEDS: Ibuprofen 800 MG Tab PO PRN (11:50)
== END 2020-10-22 12:17 | disposition home or self-care (01) | DRG 540 ==
LOC: MW.OB 05:27
PROVIDERS: ADMIT Obstetrics & Gynecology; ATTEND Obstetrics & Gynecology
PROC: 10D00Z1 Extraction of Products of Conception, Low, Open Approach (ICD-10-PCS; principal; 2020-10-20)
DX: O34.211 Maternal care for low transverse scar from previous cesarean delivery (principal); Z37.0 Single live birth; Z3A.39 39 weeks gestation of pregnancy
CPT/HCPCS: 36415; 59025; 82803; 85014; 85018; 85027; 86592; 86850; 86900; 86901; A9270-GY; J0690; J1200; J1885; J2270; J2300; J2370; J2405; J2590; J2704; J7120

== ENCOUNTER 2022-08-06 05:25 | Inpatient (IN) | payer OTHER ==
[2022-08-06] MEDS ORDERED: Naloxone 0.4 MG/ML SDV IVPUSH PRN (05:55)
[2022-08-06] MEDS ORDERED: fentaNYL 50 MCG/ML SDV IVPUSH PRN (05:55)
[2022-08-06] MEDS ORDERED: Metoclopramide 10 MG/2 ML SDV IVPUSH PRN (05:55)
[2022-08-06] MEDS ORDERED: Morphine 2 MG/ML SYRINGE IVPUSH PRN (05:55)
[2022-08-06] MEDS ORDERED: diphenhydrAMINE 50 MG/ML SDV IVPUSH PRN ×2 (05:55→09:24)
[2022-08-06] MEDS ORDERED: fentaNYL 100 MCG/2 ML SDV IVPUSH PRN (05:55)
[2022-08-06] MEDS ORDERED: HYDROmorphone 1 MG/ML Syringe IVPUSH PRN (05:55)
[2022-08-06] MEDS ORDERED: Albuterol 0.083% 2.5 MG/3 ML Neb Soln NEB PRN (05:55)
[2022-08-06] MEDS ORDERED: ePHEDrine 50 MG/ML SDV IVPUSH PRN (05:55)
[2022-08-06] MEDS ORDERED: Ondansetron 4 MG/2 ML SDV IVPUSH PRN ×3 (05:55→09:24)
[2022-08-06] MEDS ORDERED: Acetaminophen/oxyCODONE 325-5 MG Tab PO PRN ×3 (05:55→09:24)
[2022-08-06] MEDS: Lactated Ringers 1,000 ML IV SCH ×2 (06:00→07:08)
[2022-08-06] MEDS ORDERED: Sodium Chloride 0.9% 10 ML Syringe FLUSH PRN (06:44)
[2022-08-06] MEDS ORDERED: ceFAZolin 2 GM in Premix Bag 1 BAG IV ONE (06:44)
[2022-08-06] MEDS ORDERED: Citric Acid/Sodium Citrate Solution 30 ML Cup PO ONE (06:44)
[2022-08-06] MEDS ORDERED: Sodium Chloride 0.9% 2.5 ML Syringe FLUSH PRN (06:44)
[2022-08-06] MEDS ORDERED: Sodium Chloride 0.9% 20 ML SDV IV PRN (06:44)
[2022-08-06] MEDS ORDERED: Oxytocin/0.9 % Sodium Chloride 30 UNIT/500 ML BAG IV SCH (06:45)
[2022-08-06] MEDS ORDERED: Phenylephrine 1% 10 MG/ML SDV ONE (07:13)
[2022-08-06] MEDS ORDERED: ceFAZolin 1 GM Vial ONE (07:13)
[2022-08-06] MEDS ORDERED: Ketorolac 30 MG/ML SDV ONE (07:13)
[2022-08-06] MEDS ORDERED: Oxytocin 10 Units/1 ML SDV ONE ×2 (07:13→08:18)
[2022-08-06] MEDS ORDERED: Ondansetron 4 MG/2 ML SDV ONE (07:13)
[2022-08-06] MEDS ORDERED: Dexamethasone 4 MG/ML 5 ML MDV ONE (07:13)
[2022-08-06] MEDS ORDERED: Dexmedetomidine 200 MCG/2 ML SDV ONE (07:13)
[2022-08-06] MEDS ORDERED: Lidocaine 2% 5 ML SDV ONE (07:13)
[2022-08-06] MEDS ORDERED: Water For Injection, Sterile 20 ML ONE (07:13)
[2022-08-06] MEDS ORDERED: Morphine PF 10 MG/10 ML SDV ONE (07:14)
[2022-08-06] MEDS ORDERED: fentaNYL 100 MCG/2 ML SDV ONE (07:14)
[2022-08-06] MEDS ORDERED: Ropivacaine 0.5% 5 MG/ML 30 ML SDV ONE (07:27)
[2022-08-06] MEDS ORDERED: Tranexamic Acid 1,000 MG in Sodium Chloride 0.9% 100 ML IV PRN (09:24)
[2022-08-06] MEDS ORDERED: Oxytocin 10 Units/1 ML SDV IM PRN (09:24)
[2022-08-06] MEDS ORDERED: Misoprostol 200 MCG Tab RECTAL PRN (09:24)
[2022-08-06] MEDS ORDERED: Bisacodyl 10 MG Supp RECTAL PRN (09:24)
[2022-08-06] MEDS ORDERED: Lanolin 100% Cream 7 GM Tube TOP PRN (09:24)
[2022-08-06] MEDS ORDERED: Methylergonovine 0.2 MG/1 ML Amp IM PRN (09:24)
[2022-08-06] MEDS ORDERED: Lactated Ringers 1,000 ML IV SCH (09:30)
[2022-08-06] MEDS ORDERED: Acetaminophen 1,000 MG in Premix Bag 1 BAG IV PRN (11:00)
[2022-08-06] MEDS ORDERED: Ketorolac 30 MG/ML SDV IVPUSH PRN (13:00)
[2022-08-06] MEDS: Ketorolac 30 MG/ML SDV IVPUSH SCH ×3 (15:40→21:58)
[2022-08-06] MEDS: Docusate Sodium 100 MG Cap PO SCH (21:57)
[2022-08-07] MEDS ORDERED: Acetaminophen 500 MG Tab PO PRN (01:09)
[2022-08-07] MEDS ORDERED: oxyCODONE 5 MG Tab PO PRN (01:11)
[2022-08-07] MEDS: Ketorolac 30 MG/ML SDV IVPUSH SCH ×2 (04:14→09:58)
[2022-08-07 08:30] LABS: CARBON DIOXIDE,CO2 24.8 mmol/L (21.0-32.0)
[2022-08-07] MEDS: Docusate Sodium 100 MG Cap PO SCH ×2 (09:59→22:06)
[2022-08-07] MEDS: Ibuprofen 800 MG Tab PO PRN (18:20)
[2022-08-08] MEDS: Ibuprofen 800 MG Tab PO PRN (07:55)
== END 2022-08-08 10:40 | disposition home or self-care (01) | DRG 788 ==
LOC: MW.OB 05:25 → INTOOBSV 05:25 → OBSVTOIN 08:17 → INTOOBSV 08:17 → OBSVTOIN 09:24 → MW.OB 19:37
PROVIDERS: ADMIT Obstetrics & Gynecology; ATTEND Obstetrics & Gynecology
PROC: 10D00Z1 Extraction of Products of Conception, Low, Open Approach (ICD-10-PCS; principal; 2022-08-06)
DX: O34.211 Maternal care for low transverse scar from previous cesarean delivery (principal); O32.1XX0 Maternal care for breech presentation, not applicable or unspecified; O24.420 Gestational diabetes mellitus in childbirth, diet controlled; O99.214 Obesity complicating childbirth; O99.62 Diseases of the digestive system complicating childbirth; K21.9 Gastro-esophageal reflux disease without esophagitis; O99.344 Other mental disorders complicating childbirth; F41.9 Anxiety disorder, unspecified; Z37.0 Single live birth; Z3A.39 39 weeks gestation of pregnancy
CPT/HCPCS: 36415; 80048; 82803; 85014; 85018; 85027; 86592; 86850; 86900; 86901; A9270-GY; J0131; J0690; J1100; J1790; J1885; J2274; J2370; J2405; J2590; J2795; J3010; J3490; J7120